=== PATIENT | female | born 1965 ===

== ENCOUNTER 2018-11-21 09:56 | Outpatient (CLI) | payer SELFPAY | END 2018-11-21 09:57 | disposition home or self-care (01) | LOC: C.LAB 09:56 | DX: Z12.11 Encounter for screening for malignant neoplasm of colon (principal); R23.2 Flushing; Z00.00 Encounter for general adult medical examination without abnormal findings ==

== ENCOUNTER 2018-11-22 09:34 | Outpatient (CLI) | payer SELFPAY | END 2018-11-22 09:35 | disposition home or self-care (01) | LOC: C.LAB 09:34 ==

== ENCOUNTER 2018-12-05 10:40 | Outpatient (CLI) | payer OTHER | END 2018-12-05 10:41 | disposition home or self-care (01) | LOC: C.MAMMO 10:40 | DX: Z12.31 Encounter for screening mammogram for malignant neoplasm of breast (principal) ==